=== PATIENT | female | born 1930 | race Caucasian/White ===

== ENCOUNTER 2016-11-04 10:04 | Observation (INO) | payer MEDICARE ==
[~2016-11-04] VITALS: Ht 160 cm; Wt 55.0 kg
[~2016-11-04 10:04] MED LIST: ADLT ASA LOW81 MG PO; APAP; AUGMENTIN500TAB PO; BABY ASPIRIN81 MG PO; BENTYL10 MG PO; CIPROFLOXACN500 MG PO; DIFLUCAN100 MG PO; ENALAPRIL10 MG PO; FLEXERIL PO; FLONASE NASAL50 MCG; FLUARIX QUADRIV1 IN2 IM; FLUARIX QUADRIV1 INJ IM; FLULAVAL IM; HYDROCHLOROT25 MG PO; HYDROCO; HYDROCO/APAP1 T10 PO; IBUPROFEN600 MG PO; LOMOTIL2.5 MG PO; LORTAB 5/3255 MG PO; LORTAB 7.5 PO; LORTAB 7.57.5 MG PO; LOVASTATIN20 MG PO; LOVASTATIN40 M1 PO; MEDDOSEPAK OR; MEDDOSEPAK PO; MEDROL4 M1 PO; METRONIDAZOL500 MG PO; MIRAPEX0.5 MG PO; MOBIC7.5 MG PO; NAPROXEN500 MG PO; NEUPRO1 MG/24 HR PO; NEXIUM20 MG PO; NEXIUM40 M1 PO; NEXIUM40 MG PO; NITRO-DUR0.4 MG/HR TD; PANTOPRAZOLE SO40 MG PO; PNEUMOVAX 23 IM; PREVNAR 13 IM; RANITIDINE PO; RANITIDINE75 M1 PO; RANITIDINE75 M3 PO; ROBITUSSIN AC10 ML PO; SUCRALFATE1 GM PO; SYMBICORT 80-4.5MCG IN; TRIAM/NYSTAT EX; ZPAK PO
[2016-11-04 10:50] VITALS: BP 87/53
[2016-11-04 10:50] LABS: HEMATOCRIT 38.4 % (37.0-47.0); HEMOGLOBIN 11.5 g/dl (12.0-16.0); IMMATURE GRANULOCYTES 1.1 % (0.0-1.0); MEAN CELL VOLUME 83.8 fL CALC (80.0-100.0); MEAN CORPUSCULAR HGB 25.1 pG CALC (26.0-32.0); MEAN CORPUSCULAR HGB CONC 29.9 g/L CALC (32.0-36.0); NEUT# 11.15 thou/uL (2.00-7.15); RED BLOOD COUNT 4.58 mill/uL (4.20-5.60); RED CELL DISTRI WIDTH 15.3 % (11.5-15.5)
[2016-11-04 12:32] LABS: ALBUMIN 3.4 g/dL (3.2-5.0); ALKALINE PHOSPHATASE 80 u/l (38-126); ANION GAP 14 (6-22 (CALC)); BILIRUBIN, TOTAL 0.4 mg/dL (0.0-1.4); BUN 18 mg/dL (8-23); BUN/CREATININE RATIO 21 (12-20 (CALC)); CARBON DIOXIDE 35 mmol/l (22-30); CHLORIDE 94 mmol/l (95-108); CREATININE 0.9 mg/dL (0.5-1.0); GFR 59 ML/MIN (>=60 (CALC)); GFR FOR AFR.AMER. > 60 ML/MIN (>=60 (CALC)); GLUCOSE 109 mg/dL (82-115); SGOT/AST 15 u/l (9-36); SGPT/ALT 22 u/l (11-66); SODIUM 140 mmol/l (137-146); TOTAL PROTEIN 6.3 g/dL (6.3-8.2)
[2016-11-04 13:18] LABS: PROTHROMBIN TIME 11.4 SECONDS (9.0-12.5)
[2016-11-04 15:00] VITALS: BP 138/75
[2016-11-04 15:08] LABS: URINE BILIRUBIN - DIPSTICK NEGATIVE (NEGATIVE); URINE BLOOD DIPSTICK NEGATIVE (NEGATIVE); URINE CLARITY SLIGHT CLOUDY; URINE COLOR YELLOW; URINE GLUCOSE - DIPSTICK NEGATIVE (NEGATIVE); URINE KETONE NEGATIVE (NEGATIVE); URINE LEUK ESTERASE TRACE (NEGATIVE); URINE NITRITE - DIPSTICK NEGATIVE (Negative); URINE PH 5.5 (4.5-8.0); URINE PROTEIN - DIPSTICK NEGATIVE (NEG-TRACE); URINE SPECIFIC GRAVITY 1.015; URINE UROBILINOGEN - DIPSTICK 0.2 E.U./dL (0.2)
[2016-11-04 19:00] VITALS: BP 116/52
[2016-11-04 23:42] VITALS: BP 104/50
[2016-11-05 04:14] VITALS: BP 120/53
[2016-11-05 06:19] LABS: ALBUMIN 2.8 g/dL (3.2-5.0); ALKALINE PHOSPHATASE 64 u/l (38-126); ANION GAP 12 (6-22 (CALC)); BILIRUBIN, TOTAL 0.3 mg/dL (0.0-1.4); BUN 15 mg/dL (8-23); BUN/CREATININE RATIO 24 (12-20 (CALC)); CALCIUM 8.9 mg/dL (8.4-10.2); CARBON DIOXIDE 33 mmol/l (22-30); CHLORIDE 101 mmol/l (95-108); CREATININE 0.6 mg/dL (0.5-1.0); GFR > 60 ML/MIN (>=60 (CALC)); GFR FOR AFR.AMER. > 60 ML/MIN (>=60 (CALC)); GLUCOSE 165 mg/dL (82-115); POTASSIUM 3.9 mmol/l (3.5-5.1); SGOT/AST 13 u/l (9-36); SGPT/ALT 25 u/l (11-66); SODIUM 142 mmol/l (137-146); TOTAL PROTEIN 5.4 g/dL (6.3-8.2)
[2016-11-05 07:30] VITALS: BP 108/54
[2016-11-05 11:00] VITALS: BP 110/42
== END 2016-11-05 14:43 | disposition home or self-care (01) ==
LOC: MS2 10:04
PROVIDERS: ADMIT Internal Medicine Geriatric Medicine; ATTEND Internal Medicine Geriatric Medicine
PROC: 0W9B3ZZ Drainage of Left Pleural Cavity, Percutaneous Approach (ICD-10-PCS; principal; 2016-11-05)
PROC: BB4BZZZ Ultrasonography of Pleura (ICD-10-PCS; 2016-11-05)
DX: J90 Pleural effusion, not elsewhere classified (principal); J44.9 Chronic obstructive pulmonary disease, unspecified; R09.02 Hypoxemia; R91.1 Solitary pulmonary nodule; I25.10 Atherosclerotic heart disease of native coronary artery without angina pectoris; I10 Essential (primary) hypertension; E78.5 Hyperlipidemia, unspecified; K21.9 Gastro-esophageal reflux disease without esophagitis; M19.90 Unspecified osteoarthritis, unspecified site; E03.9 Hypothyroidism, unspecified; F17.200 Nicotine dependence, unspecified, uncomplicated; E86.0 Dehydration
CPT/HCPCS: Q9967

== ENCOUNTER 2016-12-01 10:03 | Inpatient (IN) | payer MEDICARE ==
[~2016-12-01] VITALS: Ht 160 cm; Wt 50.0 kg
[2016-12-01 10:39] LABS: HEMATOCRIT 36.1 % (37.0-47.0); HEMOGLOBIN 10.9 g/dl (12.0-16.0); IMMATURE GRANULOCYTES 0.9 % (0.0-1.0); MEAN CELL VOLUME 82.8 fL CALC (80.0-100.0); MEAN CORPUSCULAR HGB CONC 30.2 g/L CALC (32.0-36.0); NEUT# 15.05 thou/uL (2.00-7.15); RED BLOOD COUNT 4.36 mill/uL (4.20-5.60); RED CELL DISTRI WIDTH 16.4 % (11.5-15.5)
[2016-12-01 11:00] LABS: ALBUMIN 3.4 g/dL (3.2-5.0); ALKALINE PHOSPHATASE 84 u/l (38-126); ANION GAP 16 (6-22 (CALC)); BILIRUBIN, TOTAL 0.5 mg/dL (0.0-1.4); BUN 29 mg/dL (8-23); BUN/CREATININE RATIO 35 (12-20 (CALC)); CALCIUM 9.4 mg/dL (8.4-10.2); CARBON DIOXIDE 34 mmol/l (22-30); CHLORIDE 93 mmol/l (95-108); CREATININE 0.8 mg/dL (0.5-1.0); GFR > 60 ML/MIN (>=60 (CALC)); GFR FOR AFR.AMER. > 60 ML/MIN (>=60 (CALC)); GLUCOSE 104 mg/dL (82-115); POTASSIUM 4.3 mmol/l (3.5-5.1); SGOT/AST 17 u/l (9-36); SGPT/ALT 29 u/l (11-66); SODIUM 139 mmol/l (137-146); TOTAL PROTEIN 6.5 g/dL (6.3-8.2)
[2016-12-01 12:52] LABS: ACT PARTIAL THROMBO TIME 30.9 SECONDS (20.0-32.5); PROTHROMBIN TIME 11.1 SECONDS (9.0-12.5)
[2016-12-01 15:58] VITALS: BP 93/50
[2016-12-01] MEDS ORDERED: PRESERVISION PO (16:55)
[2016-12-01] MEDS ORDERED: PRESERVISION AREDS 2 PO (16:56)
[2016-12-01] MEDS ORDERED: ALBUTEROL SUL0.083 % IN (16:56)
[2016-12-01] MEDS ORDERED: XALATAN 0.005%2.5 ML OU (16:57)
[2016-12-01 18:14] LABS: HEMATOCRIT 33.1 % (37.0-47.0); HEMOGLOBIN 9.7 g/dl (12.0-16.0); MEAN CELL VOLUME 82.8 fL CALC (80.0-100.0); MEAN CORPUSCULAR HGB 24.3 pG CALC (26.0-32.0); MEAN CORPUSCULAR HGB CONC 29.3 g/L CALC (32.0-36.0); RED CELL DISTRI WIDTH 16.2 % (11.5-15.5)
[2016-12-01 18:21] LABS: ANION GAP 13 (6-22 (CALC)); BUN 29 mg/dL (8-23); BUN/CREATININE RATIO 39 (12-20 (CALC)); CALCIUM 8.7 mg/dL (8.4-10.2); CARBON DIOXIDE 37 mmol/l (22-30); CHLORIDE 92 mmol/l (95-108); CREATININE 0.7 mg/dL (0.5-1.0); GFR > 60 ML/MIN (>=60 (CALC)); GFR FOR AFR.AMER. > 60 ML/MIN (>=60 (CALC)); GLUCOSE 132 mg/dL (82-115); POTASSIUM 4.2 mmol/l (3.5-5.1); SODIUM 138 mmol/l (137-146)
[2016-12-01 20:06] VITALS: BP 94/65
[2016-12-01 23:32] VITALS: BP 99/54
[2016-12-02] VITALS (12 sets, daily range): BP systolic 79–128; BP diastolic 31–74
[2016-12-02 05:20] LABS: HEMATOCRIT 31.9 % (37.0-47.0); HEMOGLOBIN 9.1 g/dl (12.0-16.0); IMMATURE GRANULOCYTES 0.9 % (0.0-1.0); MEAN CELL VOLUME 83.9 fL CALC (80.0-100.0); MEAN CORPUSCULAR HGB 23.9 pG CALC (26.0-32.0); MEAN CORPUSCULAR HGB CONC 28.5 g/L CALC (32.0-36.0); NEUT# 10.07 thou/uL (2.00-7.15); RED BLOOD COUNT 3.8 mill/uL (4.20-5.60); RED CELL DISTRI WIDTH 16.3 % (11.5-15.5)
[2016-12-02 05:43] LABS: ALBUMIN 2.6 g/dL (3.2-5.0); ALKALINE PHOSPHATASE 63 u/l (38-126); ANION GAP 10 (6-22 (CALC)); BILIRUBIN, TOTAL 0.3 mg/dL (0.0-1.4); BUN 25 mg/dL (8-23); BUN/CREATININE RATIO 33 (12-20 (CALC)); CALCIUM 8.7 mg/dL (8.4-10.2); CARBON DIOXIDE 37 mmol/l (22-30); CHLORIDE 93 mmol/l (95-108); CREATININE 0.8 mg/dL (0.5-1.0); GFR > 60 ML/MIN (>=60 (CALC)); GFR FOR AFR.AMER. > 60 ML/MIN (>=60 (CALC)); GLUCOSE 96 mg/dL (82-115); POTASSIUM 4.2 mmol/l (3.5-5.1); SGOT/AST 16 u/l (9-36); SGPT/ALT 30 u/l (11-66); SODIUM 135 mmol/l (137-146); TOTAL PROTEIN 5.1 g/dL (6.3-8.2)
[2016-12-03 04:16] VITALS: BP 101/50
[2016-12-03 05:24] LABS: HEMATOCRIT 43.8 % (37.0-47.0); HEMOGLOBIN 13.5 g/dl (12.0-16.0); IMMATURE GRANULOCYTES 1.1 % (0.0-1.0); MEAN CELL VOLUME 83.7 fL CALC (80.0-100.0); MEAN CORPUSCULAR HGB 25.8 pG CALC (26.0-32.0); MEAN CORPUSCULAR HGB CONC 30.8 g/L CALC (32.0-36.0); NEUT# 11.28 thou/uL (2.00-7.15); RED BLOOD COUNT 5.23 mill/uL (4.20-5.60); RED CELL DISTRI WIDTH 15.8 % (11.5-15.5)
[2016-12-03 05:40] LABS: ALBUMIN 2.9 g/dL (3.2-5.0); ALKALINE PHOSPHATASE 75 u/l (38-126); ANION GAP 16 (6-22 (CALC)); BILIRUBIN, TOTAL 0.5 mg/dL (0.0-1.4); BUN 22 mg/dL (8-23); BUN/CREATININE RATIO 30 (12-20 (CALC)); CALCIUM 8.6 mg/dL (8.4-10.2); CARBON DIOXIDE 36 mmol/l (22-30); CHLORIDE 89 mmol/l (95-108); CREATININE 0.7 mg/dL (0.5-1.0); GFR > 60 ML/MIN (>=60 (CALC)); GFR FOR AFR.AMER. > 60 ML/MIN (>=60 (CALC)); GLUCOSE 87 mg/dL (82-115); POTASSIUM 4.2 mmol/l (3.5-5.1); SGOT/AST 29 u/l (9-36); SGPT/ALT 34 u/l (11-66); SODIUM 136 mmol/l (137-146); TOTAL PROTEIN 5.7 g/dL (6.3-8.2)
[2016-12-03 08:00] VITALS: BP 97/45
[2016-12-03 12:17] VITALS: BP 99/43
[2016-12-03] MEDS ORDERED: OXY1 (14:39)
== END 2016-12-03 17:50 | disposition home health service (06) | DRG 186 ==
LOC: MS2 10:03
PROVIDERS: ADMIT Internal Medicine Geriatric Medicine; ATTEND Internal Medicine Geriatric Medicine
PROC: 0W9B3ZZ Drainage of Left Pleural Cavity, Percutaneous Approach (ICD-10-PCS; 2016-12-01)
PROC: 30233N1 Transfusion of Nonautologous Red Blood Cells into Peripheral Vein, Percutaneous Approach (ICD-10-PCS; principal; 2016-12-02)
PROC: 30233N1 Transfusion of Nonautologous Red Blood Cells into Peripheral Vein, Percutaneous Approach (ICD-10-PCS; 2016-12-02)
DX: J90 Pleural effusion, not elsewhere classified (principal); J96.91 Respiratory failure, unspecified with hypoxia; J44.1 Chronic obstructive pulmonary disease with (acute) exacerbation; Z68.1 Body mass index [BMI] 19.9 or less, adult; I25.10 Atherosclerotic heart disease of native coronary artery without angina pectoris; I10 Essential (primary) hypertension; E78.5 Hyperlipidemia, unspecified; M19.90 Unspecified osteoarthritis, unspecified site; E03.9 Hypothyroidism, unspecified; R91.1 Solitary pulmonary nodule; K21.9 Gastro-esophageal reflux disease without esophagitis; F17.200 Nicotine dependence, unspecified, uncomplicated; R62.7 Adult failure to thrive; D64.9 Anemia, unspecified; E86.0 Dehydration; R63.4 Abnormal weight loss; Z66 Do not resuscitate; R93.8 Abnormal findings on diagnostic imaging of other specified body structures
CPT/HCPCS: P9016; Q9967